=== PATIENT | female | born 1965 | race Caucasian/White ===

== ENCOUNTER 2023-10-14 17:45 | Emergency (ER) | payer OTHER ==
[2023-10-14 18:41] LABS: HEMATOCRIT 41.9 % (32.4-45.2); HEMOGLOBIN 13.9 G/dL (10.7-15.3); MCH 31.5 pg (25.7-33.7); MCHC 33.1 g/dl (32.0-36.0); MEAN PLT VOLUME 7.6 fl (7.5-11.1); PLATELET COUNT 322.2 10^3/uL (134-434); RBC 4.41 10^6/uL (3.60-5.2); RDW 14.2 % (11.6-15.6); WHITE BLOOD COUNT 6.8 10^3/uL (4.0-10.8)
[2023-10-14 18:48] VITALS: BP 123/94; PULSE 64; RESP 16; TEMP 98.4; BMI 27.1
[2023-10-14] MEDS: KETOROLAC TROMETHAMINE 10 MG TABLET PO ONE (19:12)
[2023-10-14] MEDS ORDERED: LIDOCAINE 5% TOPICAL PATCH ONE (19:13)
[2023-10-14] MEDS ORDERED: KETOROLAC TROMETHAMINE 15 MG/ML VIAL ONE (19:13)
[2023-10-14 19:17] LABS: ALBUMIN 4.7 g/dl (3.4-5.0); BILIRUBIN,TOTAL 0.5 mg/dl (0.2-1); CALCIUM 9.8 mg/dl (8.5-10.1); CREATININE 0.7 mg/dl (0.6-1.3); POTASSIUM 4.3 mmol/L (3.5-5.1); TOT PROT 7.4 g/dl (6.4-8.2)
[2023-10-14] MEDS: KETOROLAC TROMETHAMINE 15 MG/ML VIAL IVPUSH ONE (19:25)
[2023-10-14] MEDS: LIDOCAINE 5% TOPICAL PATCH TP ONE (19:25)
[2023-10-15] MEDS ORDERED: LIDOCAINE PATCH REMOVAL MC SCH (07:00)
== END 2023-10-14 22:05 | disposition home or self-care (01) ==
LOC: FER 17:45
PROC: 3E0333Z Introduction of Anti-inflammatory into Peripheral Vein, Percutaneous Approach (ICD-10-PCS; principal; 2023-10-14)
DX: R07.2 Precordial pain (principal); R68.84 Jaw pain; R00.1 Bradycardia, unspecified
CPT/HCPCS: 36415; 71046-TC-FY; 80053; 84484; 85027; 93005; 99285-25